=== PATIENT | female | born 1965 | race Caucasian/White ===

== ENCOUNTER 2021-10-22 12:41 | Outpatient (CLI) | payer OTHER, SELFPAY ==
--- NOTE | 2021-10-22 13:05 | XR_ITS ---
WS: [id number] Exam: XR wrist RT 2V [id number] Date/Time of Exam: 10/22/2021 1:15 PM Reason For Exam: WRIST PAIN No acute fracture or dislocation. Old fractures of the distal radius and ulna. Degenerative narrowing of the radiocarpal joint. Separation of the scaphoid and lunate which may indicate intracarpal ligam ent rupture. Normal soft tissues. XR/XR wrist RT 2V [id number] IMPRESSION: 1. Old fractures of the distal radius and ulna. 2. Degenerative narrowing of the radiocarpal joint. Separation of the scaphoid and lunate which may represent intracarpal ligament tear.
--- NOTE | 2021-10-22 13:05 | XR_ITS ---
WS: [id number] Exam: XR wrist LT 2V [id number] Date/Time of Exam: 10/22/2021 1:15 PM Reason For Exam: WRIST PAIN No acute fracture or dislocation. Mild degenerative change of the radiocarpal joint. Positive ulnar v ariance. Normal soft tissues. Old fracture deformity of the distal ulna. XR/XR wrist LT 2V [id number] IMPRESSION: 1. No fracture or dislocation. 2. Mild degenerative change of the radiocarpal joint. 3. Positive ulnar variance. Probable old fracture deformity of the distal ulna.
--- NOTE | 2021-10-22 13:06 | XR_ITS ---
WS: [id number] Exam: XR hand LT 2V [id number] Date/Time of Exam: 10/22/2021 1:15 PM Reason For Exam: WRIST PAIN No acute fracture or dislocation. Mild degenerative changes of the IP and MP joints. No soft tissue f oreign bodies. Slight degenerative change at the CMC joint of the thumb. XR/XR hand LT 2V [id number] IMPRESSION: 1. Mild degenerative changes of the left hand. No fracture or other significant finding.
--- NOTE | 2021-10-22 13:06 | XR_ITS ---
WS: [id number] Exam: XR hand RT 2V [id number] Date/Time of Exam: 10/22/2021 1:15 PM Reason For Exam: WRIST PAIN No fracture or dislocation. Mild degenerative change of the IP joints and the MP joint of the thumb. No soft tissue foreign bodies. Mild soft tissue swelling of the third finger. XR/XR hand RT 2V [id number] IMPRESSION: 1. Mild degenerative changes of the right hand. No fracture or other significan t finding.
== END 2021-10-22 12:42 | disposition home or self-care (01) ==
PROVIDERS: Family Provider Family Medicine; Visit Provider Family Medicine
DX: M25.532 Pain in left wrist (principal); M25.531 Pain in right wrist
CPT/HCPCS: 73100; 73120

== ENCOUNTER → 2022-01-18 18:24 | Outpatient (BNVA) | payer OTHER, SELFPAY | PROVIDERS: Family Provider Family Medicine; Visit Provider Family Medicine | DX: R31.9 Hematuria, unspecified (principal) | CPT/HCPCS: 81000 ==

== ENCOUNTER → 2022-02-18 14:42 | Outpatient (BNVA) | payer OTHER, SELFPAY | PROVIDERS: Family Provider Family Medicine; PCP Family Medicine; Visit Provider Family Medicine | DX: N39.0 Urinary tract infection, site not specified (principal) | CPT/HCPCS: 81000; 87077; 87086; 87184 ==

== ENCOUNTER → 2022-05-04 12:25 | Outpatient (BNVA) | payer OTHER, SELFPAY | PROVIDERS: Family Provider Family Medicine; PCP Family Medicine; Visit Provider Family Medicine | DX: N39.0 Urinary tract infection, site not specified (principal) | CPT/HCPCS: 81000; 87077; 87086; 87184 ==

== ENCOUNTER → 2022-06-24 09:21 | Outpatient (BNVA) | payer OTHER, SELFPAY | PROVIDERS: Family Provider Family Medicine; PCP Family Medicine; Visit Provider Orthopaedic Surgery | DX: M47.12 Other spondylosis with myelopathy, cervical region (principal); M50.323 Other cervical disc degeneration at C6-C7 level; G95.89 Other specified diseases of spinal cord | CPT/HCPCS: 72050 ==

== ENCOUNTER → 2022-11-18 14:05 | Outpatient (BNVA) | payer OTHER, SELFPAY | PROVIDERS: Family Provider Family Medicine; PCP Family Medicine; Visit Provider Family Medicine | DX: N39.0 Urinary tract infection, site not specified (principal); I10 Essential (primary) hypertension | CPT/HCPCS: 87077; 87086; 87184 ==

== ENCOUNTER → 2022-12-10 09:22 | Outpatient (BNVA) | payer OTHER, SELFPAY | PROVIDERS: Family Provider Family Medicine; PCP Family Medicine; Visit Provider Family Medicine | DX: N39.0 Urinary tract infection, site not specified (principal); I10 Essential (primary) hypertension | CPT/HCPCS: 80053; 80061; 81000; 85025 ==

== ENCOUNTER → 2024-01-27 08:55 | Outpatient (BNVA) | payer OTHER, SELFPAY | PROVIDERS: Family Provider Family Medicine; PCP Family Medicine; Visit Provider Clinical Nurse Specialist Adult Health | DX: R30.0 Dysuria (principal); N39.0 Urinary tract infection, site not specified | CPT/HCPCS: 81000 ==

== ENCOUNTER → 2024-02-08 08:43 | Outpatient (BNVA) | payer SELFPAY | PROVIDERS: Family Provider Family Medicine; PCP Family Medicine; Visit Provider Family Medicine | DX: N39.0 Urinary tract infection, site not specified (principal) | CPT/HCPCS: 81000; 87077; 87086; 87184 ==

== ENCOUNTER 2024-03-17 16:44 | Emergency (ER) | payer SELFPAY ==
[2024-03-17 16:59] VITALS: BP 169/90; PULSE 76; RESP 16; TEMP 36.8; O2SAT 96; BMI 30.4
[2024-03-17 17:35] LABS: Urine Appearance Cloudy (CLEAR); Urine Color Yellow (Yellow)
[2024-03-17 17:36] LABS: Add Urine Culture? Yes; Add Urine Microscopic? YES; Bacteria Urine 3+ /hpf; Bilirubin Urine Neg (Negative); Blood Urine 3+ (Negative); Glucose Urine UA Norm (Normal); Ketones Urine Negative (Negative); Leukocyte Esterase Urine 2+ (Negative); Nitrate Urine Negative (Negative); Protein Urine 1+ (Negative); Specific Gravity, Urine 1.015 (1.005-1.030); Urobilinogen Urine Norm (Negative); WBC Urine >100 /hpf (0-5); pH Urine 6 (5-7)
[2024-03-17 18:17] LABS: Basophils # 0.1 10^3/uL (0.0-0.1); Basophils % 0.5 %; Eosinophils # 0.1 10^3/uL (0.0-0.8); Eosinophils % 0.5 %; Hematocrit 45.1 % (36-47); Lymphocytes % 13.8 %; Mean Corpuscular HGB Conc 34.4 g/dL (30-55); Mean Corpuscular Hemoglobin 29.9 pg (27-33); Mean Corpuscular Volume 86.9 fl (85-98); Mean Platelet Volume 10.2 fL (7.4-10.4); Monocytes # 0.8 10^3/uL (0.2-0.9); Monocytes % 5.6 %; Neutrophils % 79.1 %; Nucleated Red Blood Cells % 0 %; Platelet Count 250 10^3/cmm (157-399); Red Blood Count 5.19 10^6/uL (3.85-5.65); Red Cell Distribution Width 12.5 % (12.1-15.1); White Blood Count 14.56 10^3/uL (3.29-11.43)
[2024-03-17 18:33] LABS: Alanine Aminotransferase 34 U/L (0-33); Albumin Level 4.6 g/dL (3.5-5.2); Alkaline Phosphatase 69 U/L (35-105); Anion Gap 18.3 (5-19); Aspartate Amino Transferase 26 U/L (0-32); Blood Urea Nitrogen 10 mg/dL (6-20); Calcium 9.8 mg/dL (8.5-10.5); Carbon Dioxide 27 mmol/L (22-29); Chloride 98 mmol/L (98-107); Creatinine Clr Calc Pharmacy 74.2679; Globulin 3.5 g/dL (1.3-4.6); Glomerular Filtration Rate 64.8 mL/min (90-130); Glucose 116 mg/dL (65-115); Osmolality Calculated 290 mOsm/kg (285-295); Potassium 3.3 mmol/L (3.5-5.1); Sodium 140 mmol/L (136-145); Total Bilirubin 0.6 mg/dL (0.15-1.2); Total Protein 8.1 g/dL (6.6-8.7)
[2024-03-17 22:12] VITALS: BP 141/98; PULSE 80; O2SAT 97
--- NOTE | 2024-03-17 22:14 | W.ED.BACK ---
HPI - Back Pain/Injury General: Chief Complaint: Back Pain/Injury Stated Complaint: low back pain left side Time Seen by Provider: 03/17/24 22:06 History of Present Illness: Patient presents to the ER with complaints of low back pain, worse on the left side that radiates to the front. Patient says she does have pain burning and frequency when she urinates. As well as nausea and fatigue. Patient says she does have a history of a stone but it is on the right side she thinks. Patient has chronic back pain but this is definitely different than her normal back pain. This is more abdominal pelvic in nature Related Data Previous Rx's Medication Instructions Recorded citalopram 40 mg tablet See Rx Instructions .Route 08/04/23 .COMPLEX #90 tabs hydrochlorothiazide 25 mg tablet See Rx Instructions .Route 08/04/23 .COMPLEX #90 tabs triamcinolone acetonide 0.5 % 1 applic topical BID #45 grams 02/06/24 topical cream phenazopyridine 100 mg tablet 100 mg PO Q8H 6 doses #6 tabs 03/17/24 (Pyridium) sulfamethoxazole 800 1 tab PO BID #14 tabs 03/17/24 mg-trimethoprim 160 mg tablet (Bactrim DS) Allergies Allergy/AdvReac Type Severity Reaction Status Date / Time Penicillins Allergy Mild rash Verified 03/17/24 16:58 Review of Systems General: Reports: 10 or more systems reviewed and unremarkable except in HPI and below PFSH ED PFSH: Medical History Anxiety Hyperlipidemia Hypertension Primary osteoarthritis, right shoulder Surgical History Hx of neck surgery Hx of section Hx of carpal tunnel repair Hx of hysterectomy Family History Denies family history of Cancer Social History Smoking and tobacco/nicotine status: unknown if used tobacco/nicotine Alcohol intake: never Physical Exam Const: COMMON NORMALS: no acute distress, average body habitus, patient oriented x3, no limitations, healthy appearing, alert and well nourished HENMT: COMMON NORMALS: normocephalic, atraumatic, hearing grossly normal bilaterally, external ears normal, Normal external nose present and moist oral mucous membranes HEAD & SCALP: normocephalic and atraumatic NOSE: Normal external nose present EXTERNAL EAR: Yes external ears normal Neck/C-Spine: COMMON NORMALS: no JVD Chest: COMMONS NORMALS: normal inspection of the chest and normal palpation of entire chest wall Resp: COMMON NORMALS: normal respiratory effort, No retractions, No use of accessory muscles and clear to auscultation bilaterally AUSCULTATION: clear to auscultation bilaterally Cardio: COMMON NORMALS: no JVD, regular rate, regular rhythm, S1 normal heart sound present, S2 normal heart sound present, No gallops present (Cardio), No clicks present (Cardio), No murmurs present (Cardio) and No rub (Cardio) RATE: regular rate RHYTHM: regular rhythm HEART SOUNDS: S1 normal heart sound present and S2 normal heart sound present GI: COMMON NORMALS: Normal to inspection, nondistended, normoactive bowel sounds present, Soft to palpation, non-tender, No hepatosplenomegaly present and no masses PALPATION: Yes Soft to palpation and Yes No hepatosplenomegaly present Neuro: COMMON NORMALS: patient oriented x3 SENSORIUM/ORIENTATION: Yes alert Course Vital Signs: Vital signs: Vital Signs Temperature 98.3 F 03/17/24 16:59 Pulse Rate 80 03/17/24 22:12 Respiratory Rate 16 03/17/24 16:59 Blood Pressure 141/98 03/17/24 22:12 Pulse Oximetry 97 03/17/24 22:12 Oxygen Delivery Me thod Room Air 03/17/24 22:12 MDM - Back Pain/Injury Medical Decision Making Send lab work as well as urinalysis, white blood cell count was 14.5, urinalysis showed white blood cells greater than 100, red blood cells 10-15, 2+ leukocyte Estrace. Old chart was reviewed with multiple urine cultures grow out Proteus that was premature pansensitive. Patient be placed on Bactrim and be given a shot of Toradol. Patient be sent home with prescription for Bactrim and Pyridium. Patient to follow-up with her PCP within next 7 days. Labs 03/17/24 18:06 03/17/24 18:06 Laboratory Results WBC 14.56 10^3/uL (3.29-11.43) H 03/17/24 18:06 RBC 5.19 10^6/uL (3.85-5.65) 03/17/24 18:06 Hgb 15.50 g/dL (11.27-16.99) 03/17/24 18:06 Hct 45.1 % (36-47) 03/17/24 18:06 MCV 86.9 fl (85-98) 03/17/24 18:06 MCH 29.9 pg (27-33) 03/17/24 18:06 MCHC 34.4 g/dL (30-55) 03/17/24 18:06 RDW 12.5 % (12.1-15.1) 03/17/24 18:06 Plt Count 250 10^3/cmm (157-399) 03/17/24 18:06 MPV 10.2 fL (7.4-10.4) 03/17/24 18:06 Neut % (Auto) 79.1 % 03/17/24 18:06 Lymph % (Auto) 13.8 % 03/17/24 18:06 [place] % (Auto) 5.6 % 03/17/24 18:06 Eos % (Auto) 0.5 % 03/17/24 18:06 Baso % (Auto) 0.5 % 03/17/24 18:06 Neut # (Auto) 11.50 10^3/uL (1.8-7.7) H 03/17/24 18:06 Lymph # (Auto) 2.0 10^3/uL (0.8-4.8) 03/17/24 18:06 [place] # (Auto) 0.8 10^3/uL (0.2-0.9) 03/17/24 18:06 Eos # (Auto) 0.1 10^3/uL (0.0-0.8) 03/17/24 18:06 Baso # (Auto) 0.1 10^3/uL (0.0-0.1) 03/17/24 18:06 Nucleated RBC % (auto) 0 % 03/17/24 18:06 Nucleated RBCs # 0.0 /100WBC 03/17/24 18:06 Sodium 140 mmol/L (136-145) 03/17/24 18:06 Potassium 3.3 mmol/L (3.5-5.1) L 03/17/24 18:06 Chloride 98 mmol/L (98-107) 03/17/24 18:06 Carbon Dioxide 27 mmol/L (22-29) 03/17/24 18:06 Anion Gap 18.3 (5-19) 03/17/24 18:06 BUN 10 mg/dL (6-20) 03/17/24 18:06 Creatinine 0.9 mg/dL (0.5-0.9) 03/17/24 18:06 GFR Calculation 64.8 mL/min (90-130) L 03/17/24 18:06 Glucose 116 mg/dL (65-115) H 03/17/24 18:06 Calculated Osmolality 290 mOsm/kg (285-295) 03/17/24 18:06 Calcium 9.8 mg/dL (8.5-10.5) 03/17/24 18:06 Total Bilirubin 0.6 mg/dL (0.15-1.2) 03/17/24 18:06 AST 26 U/L (0-32) 03/17/24 18:06 ALT 34 U/L (0-33) H 03/17/24 18:06 Alkaline Phosphatase 69 U/L (35-105) 03/17/24 18:06 Total Protein 8.1 g/dL (6.6-8.7) 03/17/24 18:06 Albumin 4.6 g/dL (3.5-5.2) 03/17/24 18:06 Globulin 3.5 g/dL (1.3-4.6) 03/17/24 18:06 Urine Color Yellow (Yellow) 03/17/24 17:14 Urine Appearance Cloudy (CLEAR) A 03/17/24 17:14 Urine pH 6 (5-7) 03/17/24 17:14 Ur Specific [place] 1.015 (1.005-1.030) 03/17/24 17:14 Urine Protein 1+ (Negative) H 03/17/24 17:14 Urine Glucose (UA) Norm (Normal) 03/17/24 17:14 Urine Ketones Negative (Negative) 03/17/24 17:14 Urine Blood 3+ (Negative) H 03/17/24 17:14 Urine Nitrate Negative (Negative) 03/17/24 17:14 Urine Bilirubin Neg (Negative) 03/17/24 17:14 Urine Urobilinogen Norm mg/dL (Negative) 03/17/24 17:14 Ur Leukocyte Esterase 2+ (Negative) H 03/17/24 17:14 Urine RBC 10-15 /hpf (0-2) H 03/17/24 17:14 Urine WBC >100 /hpf (0-5) H 03/17/24 17:14 Ur Squamous Epith Cells 5-10 /hpf (0-5) H 03/17/24 17:14 Amorphous Sediment Not Reportable 03/17/24 17:14 Urine Bacteria 3+ /hpf (NONE) H 03/17/24 17:14 All radiology interpretation(s) finalized by discharge Discharge Plan Discharge Patient Disposition: Home Clinical Impression: Recurrent UTI Condition: Stable Prescriptions: New Bactrim DS 800-160 mg tablet 1 tab PO BID Qty: 14 0RF Pyridium 100 mg tablet 100 mg PO Q8H Qty: 6 0RF Discontinued cefdinir 300 mg capsule 300 mg PO Q12H Qty: 14 0RF ciprofloxacin HCl 500 mg tablet 500 mg PO BID Qty: 20 0RF No Action triamcinolone acetonide 0.5 % cream 1 applic topical BID Qty: 45 2RF citalopram 40 mg tablet See Rx Instructions .ROUTE .COMPLEX Qty: 90 3RF Dose Instruction: Take 1 tablet by mouth once daily Rx Instructions: Take 1 tablet by mouth once daily hydrochlorothiazide 25 mg tablet See Rx Instructions .ROUTE .COMPLEX Qty: 90 5RF Dose Instruction: Take 1 tablet by mouth once daily Rx Instructions: Take 1 tablet by mouth once daily Discharge Orders: Discharge ED (Routine); Ordered 03/17/24 Ordered By: Ismael Kim Referrals: Castillo Cueva MD [Primary Care Provider] - 1 week Patient Instructions: Urinary Tract Infection - Women Activity Restrictions/Additional Instructions: Your evaluation in the ER showed you have a urinary tract infection. Upon review of your chart it showed usually grew out a bacteria called Proteus and it is sensitive to a medicine called Bactrim. You have been given Bactrim in the ER and a prescription was sent to your pharmacy. Please take all medicine as directed. Please follow-up with your family practice physician within the next 7 days for further evaluation and treatment. Once your culture comes back if we need to change antibiotics you will be notified. Coding Level of Care Code ED [employer] Lead for Kina Zamudio
[2024-03-17] MEDS: ketorolac 60 mg/2 mL INJ IM (22:22)
[2024-03-17] MEDS: sulfamethoxazole-trimeth DS 160-800 mg Tablet 1 TAB PO (22:23)
[2024-03-17 22:59] VITALS: BP 151/112; PULSE 85; O2SAT 95
== END 2024-03-17 22:58 | disposition home or self-care (01) ==
PROVIDERS: Emergency Provider Emergency Medicine; PCP Family Medicine
DX: N39.0 Urinary tract infection, site not specified (principal); Z87.440 Personal history of urinary (tract) infections; E78.5 Hyperlipidemia, unspecified; I10 Essential (primary) hypertension
CPT/HCPCS: 36415; 80053; 81001; 85025; 87086; 96372; 99284; J1885

== ENCOUNTER → 2025-04-04 16:21 | Outpatient (BNVA) | payer OTHER, SELFPAY | PROVIDERS: PCP Family Medicine; Visit Provider Family Medicine | DX: N39.0 Urinary tract infection, site not specified (principal) | CPT/HCPCS: 81000; 87086 ==